=== PATIENT | male | born 1990 | race Caucasian/White ===

== ENCOUNTER 2020-02-02 09:07 | Emergency (ER) | payer OTHER ==
[~2020-02-02] VITALS: Ht 172.7 cm; Wt 79.4 kg
[2020-02-02 09:31] VITALS: BP 111/58
[2020-02-02] MEDS ORDERED: PRED20TA PO (10:05)
[2020-02-02] MEDS ORDERED: CETI10TA15 PO (10:05)
[2020-02-02] MEDS ORDERED: DIPH25CA83 PO (10:05)
== END 2020-02-02 10:25 | disposition home or self-care (01) ==
LOC: ER 09:08
DX: L23.7 Allergic contact dermatitis due to plants, except food (principal); Z79.899 Other long term (current) drug therapy
CPT/HCPCS: 99283